=== PATIENT | female | born 2000 | race Caucasian/White ===

== ENCOUNTER 2023-03-08 23:19 | Inpatient (IN) | payer BC, OTHER ==
[~2023-03-08] VITALS: Ht 162.6 cm; Wt 39.5 kg
[2023-03-09] VITALS (7 sets, daily range): BP systolic 105–158; BP diastolic 64–87; TEMP 98.1–98.7; O2SAT 98–100
--- NOTE | 2023-03-09 01:10 | NUR ---
BIBFRIEND C/O N/V DURING THE DAY, NON STOP. PAIN AT RLQ. AAXO4.
[2023-03-09] MEDS ORDERED: ONDANSETRON HCL/PF 4 MG/2 ML VIAL ONE (01:29)
[2023-03-09 01:30] LABS: BASOPHILS % (AUTO) 0.3 % (0.0-2.0); EOSINOPHILS % (AUTO) 0.3 % (0.0-6.0); HEMATOCRIT 42 % (33-45); LYMPHOCYTES # (AUTO) 0.5 K/uL (0.8-4.8); LYMPHOCYTES % (AUTO) 2.7 % (20.0-44.0); MEAN CORPUSCULAR HGB CONC 33 g/dl (31.0-36.0); MEAN CORPUSCULAR VOLUME 90 fL (82-100); MONOCYTES # (AUTO) 0.3 K/uL (0.1-1.30); MONOCYTES % (AUTO) 1.5 % (2.0-12.0); NEUTROPHILS # (AUTO) 16.2 K/uL (1.8-8.9); NEUTROPHILS % (AUTO) 95.2 % (43.0-81.0); PLATELET COUNT (AUTO) 268 K/uL (150-450); RED BLOOD CELL COUNT(AUTO) 4.73 MIL/uL (4.0-5.2); WHITE BLOOD COUNT (AUTO) 17.1 K/uL (4.3-11.0)
[2023-03-09] MEDS ORDERED: ONDANSETRON HCL/PF 4 MG/2 ML VIAL IVP ONE (01:30)
[2023-03-09] MEDS ORDERED: IV NS 0.9% 1,000 ML BAG IV ONE ×2 (01:30→02:30)
[2023-03-09] MEDS ORDERED: MORPHINE SULFATE INJ 2 MG/ML DISP.SYRIN IV ONE ×2 (01:30→02:30)
[2023-03-09 01:40] LABS: POTASSIUM 3.8 mmol/L (3.5-5.1)
[2023-03-09 01:46] LABS: ALBUMIN 4.5 g/dL (3.4-5.0); BILIRUBIN,DIRECT 0.2 mg/dL (0.0-0.2); BILIRUBIN,TOTAL 0.7 mg/dL (0.2-1.0); TOTAL PROTEIN, SERUM 8.2 g/dL (6.4-8.2)
[2023-03-09] MEDS ORDERED: PIPERACILLIN /TAZOBACTAM 3.375 G in IV D5W 50 ML IV ONE (02:30)
[2023-03-09] MEDS ORDERED: VANCOMYCIN 1 GM in IV D5W 250 ML IV ONE (02:30)
[2023-03-09] MEDS ORDERED: PIPERACI/TAZO 3.375GM/D5W 50ML PB IV ONE (02:33)
[2023-03-09] MEDS ORDERED: VANCOMYCIN 1 GM /D5W 250 ML PB IV ONE (02:33)
--- NOTE | 2023-03-09 02:50 | NUR ---
URINE SAMPLE COLLECTED AND SENT TO LAB.
--- NOTE | 2023-03-09 02:50 | NUR ---
IV FLUIDS NS 0.9 1 LITER; START TIME: 0250; END TIME: 0350; AT L AC.
[2023-03-09] MEDS ORDERED: HYDROMORPHONE 1 MG/1 ML DISP.SYRIN IV ONE (03:00)
[2023-03-09] MEDS ORDERED: HYDROMORPHONE 1 MG/1 ML DISP.SYRIN ONE (03:02)
[2023-03-09] MEDS ORDERED: CT SWABBABLE VALVE TRANS SET 1 EA INFUS.SET MC ONE (03:06)
[2023-03-09] MEDS ORDERED: IV NS 0.9% 250 ML IV ONE (03:06)
[2023-03-09] MEDS ORDERED: IOHEXOL-300 100 ML VIAL IV ONE (03:06)
--- NOTE | 2023-03-09 03:53 | NUR ---
PATIENT TAKEN TO CT BY [facility].
[2023-03-09 03:56] LABS: BILIRUBIN,URINE 1+ (NEGATIVE); COLOR,URINE YELLOW (YELLOW); LEUKOCYTE ESTERASE ,URINE 1+ (NEGATIVE); NITRITE, URINE NEGATIVE (NEGATIVE); PROTEIN,URINE TRACE mg/dl (NEGATIVE); UGLUCOSE NEGATIVE (NEGATIVE); UROBILINOGEN,URINE 0.2 EU/dL (0.2)
[2023-03-09 04:13] LABS: BACTERIA,URINE Few /HPF (None Seen); MUCUS,URINE Few /LPF (None Seen); RBC,URINE NONE SEEN /HPF (0-2)
--- NOTE | 2023-03-09 04:55 | NUR ---
COMMERCIAL ASSISTANT AT BEDSIDE.
[2023-03-09] MEDS ORDERED: IV NS 0.9% 1,000 ML IV SCH (05:00)
--- NOTE | 2023-03-09 05:00 | NUR ---
REPORT GIVEN TO DORA GUZMAN.
--- NOTE | 2023-03-09 05:30 | NUR ---
PATIENT TRANSFERED TO ROOM 308-1.
[2023-03-09] MEDS: ENOXAPARIN SODIUM 40 MG/0.4 ML DISP.SYRIN SQ SCH (06:03)
--- NOTE | 2023-03-09 06:10 | NUR ---
DICER MACHINE OPERATORBILINGUAL RESEARCH INTERVIEWER NOTE PATIENT WAS BROUGHT TO THE UNIT AT AROUND 0530 VIA STRETCHER ACCOMPANIED BY ER STAFF. ALERT AND ORIENTED X4. PER REPORT, PATIENT WAS SENT TO ER D/T NON STOP N/V DURING THE DAY. DIRECTED TO ROOM 308-1. EXPLAINED ADMISSION PROCESS TO THE PATIENT WHICH INCLUDES SKIN ASSESSMENT, PATIENT VERBALIZED UNDERSTANDING AND AGREED TO IT. SKIN IS INTACT. WITH IV ACCESS ON LFA 20G. BELONGINGS CHECK AND PROPERLY DOCUMENTED TOGETHER WITH ASSIGNED STAFF. STARTED ON IV HYDRATION OF NS AT 75ML/HR. VITALS TAKEN AND RECORDED. SAFETY MEASURES IN PLACE. KEPT BED IN LOCKED AND IN LOW POSITION. SIDE RAILS UP X2. ADVISED TO USE THE CALL LIGHT WHEN IN NEED OF ASSISTANCE. ALL NURSING NEEDS ATTENDED. ENDORSED TO INCOMING SHIFT FOR CONTINUITY OF CARE.
[2023-03-09] MEDS ORDERED: DEXT10TA7 PO (08:23)
[2023-03-09] MEDS ORDERED: LAMO150T6 PO (08:23)
[2023-03-09] MEDS: ACETAMINOPHEN 325 MG TABLET PO PRN ×2 (09:02→13:14)
[2023-03-09] MEDS: ONDANSETRON HCL/PF 4 MG/2 ML VIAL IVP PRN ×3 (09:25→21:32)
[2023-03-09] MEDS: MORPHINE SULFATE INJ 2 MG/ML DISP.SYRIN IV PRN ×3 (10:16→21:32)
--- NOTE | 2023-03-09 10:20 | NUR ---
RN NOTE PATIENT WAS WITH KINGSLEY CHAPPELL, PATIENT COMPLAINED OF ABDOMEN PAIN 9. PATIENT ASKED FOR PAIN MEDICATION, MORPHINE 2MG IV GIVEN AT 1016, CONFER MEASURES OFFERED TO PATIENT, WILL CONTINUE TO MONITOR.
[2023-03-09] MEDS: ZOSYN IVPB 3.375 G in IV D5W 50ml IV SCH ×3 (12:22→23:36)
[2023-03-09] MEDS: DICYCLOMINE HCL 10 MG CAPSULE PO SCH ×2 (18:17→21:00)
--- NOTE | 2023-03-09 18:38 | NUR ---
CLOSING NOTE PATIENT IN BED RESTING, A/OX4, ON ROOM AIR WITH CONTINUOS ABDOMINAL PAIN, PAIN CONTROL PER MD ORDER/ PT STATUS. PATIENT THROUGHOUT SHIT NAUSEOUS AND VOMITING. ASPIRATION PRECAUTION IN PLACE AND MEDICATION GIVEN ORDERED. PATIENT THROUGHOUT SHIT WAS COMPLAINT AND COOPERATIVE TO CARE. MD AND CHARGE NURSE UPDATED ON PATIENT STATUS. IV ACCESS REMAINS INTACT AND PATIENT, RUNNING NS 75ML/HR. SAFETY PRECAUTION AND ASPIRATION PRECAUTION IN PLACE, BED IN A FOWLERS POSITION, LOCKED IN PLACE, SRx2, CALL LIGHT WITH IN REACH.
--- NOTE | 2023-03-09 19:40 | NUR ---
COSMETIC SURGEON OPENING NOTES RECEIVED PT IN BED, AWAKE, A/O X4, ABLE TO MAKE NEEDS KNOWN. PT ON ROOM AIR, TOLERATING WELL, DENIES SOB. ON POLYMER MATERIALS CONSULTANT WITH CURRENT READING OF SR, 76BPM. IV ACCESS ON LAC 20G, PATENT, INTACT AND INFUSING WELL WITH NS 75ML/HR. PT IS AMBULATORY, WITH BRP. DENIES PAIN, NAUSEA AND ABDOMINAL SPASM AT THIS TIME. NOTED NO S/S OF ACUTE DISTRESS. PT'S FRIEND PRESENT AT BEDSIDE. SAFETY PRECAUTIONS IN PLACED: BED AT LOWEST AND LOCKED POSITION, CALL LIGHT BUTTON WITHIN REACH. WILL CONTINUE MONITORING PT.
--- NOTE | 2023-03-09 21:17 | NUR ---
AIR PUMPER NOTES SPOKE TO PHARMACY: ADVISED TO HOLD BENTYL THEN GIVE NEXT DOSE AT 0500 SCHEDULED.
--- NOTE | 2023-03-09 21:32 | NUR ---
SOCIAL PROBLEMS SPECIALIST NOTES PT VOMITING AND COMPLAINS OF PAIN. PRN ZOFRAN AND MORPHINE GIVEN. PLEASE SEE EMAR FOR ASSESSMENT AND ADMIN. WILL CONTINUE TO MONITOR PT.
--- NOTE | 2023-03-09 21:33 | NUR ---
MECHANIC INSULATOR NOTE PATIENT WITH EPISODE OF EMESIS X 1, CONTINUES TO FEEL NAUSEOUS. PATIENT ALSO C/O 10/10 ABDOMINAL PAIN. ZOFRAN 4 MG IV AND MORPHINE 2 MG IV GIVEN ORDERED. WILL CONTINUE TO MONITOR PATIENT
[2023-03-09] MEDS ORDERED: ZOLPIDEM TARTRATE 5 MG TABLET PO PRN (22:00)
--- NOTE | 2023-03-09 23:47 | NUR ---
SHELLS INSPECTOR NOTES PT UNABLE TO SLEEP, REQUESTED FOR AMBIEN. PRN AMBIEN 5MG TAB GIVEN, PLEASE SEE EMAR.
[2023-03-10] VITALS (8 sets, daily range): BP systolic 86–103; BP diastolic 45–73; TEMP 98–99.2; O2SAT 96–99
[2023-03-10] MEDS: IV NS 0.9% 1,000 ML IV PRN ×2 (03:04→21:38)
--- NOTE | 2023-03-10 04:21 | NUR ---
FEED IN WORKER NOTE PATIENT REQUESTED MEDICATION FOR SLEEP, CONTACTED INSEMINATION WORKER DR. FRIAS WITH ORDER FOR PRN AMBIEN 5 MG PO HS. ORDER CARRIED OUT
[2023-03-10] MEDS: DICYCLOMINE HCL 10 MG CAPSULE PO SCH ×3 (05:37→20:30)
[2023-03-10] MEDS: ZOSYN IVPB 3.375 G in IV D5W 50ml IV SCH ×4 (05:38→23:43)
[2023-03-10] MEDS: ENOXAPARIN SODIUM 40 MG/0.4 ML DISP.SYRIN SQ SCH (05:39)
[2023-03-10 05:49] LABS: BASOPHILS # (AUTO) 0.1 K/uL (0.0-0.2); BASOPHILS % (AUTO) 0.7 % (0.0-2.0); EOSINOPHILS % (AUTO) 0.6 % (0.0-6.0); HEMATOCRIT 31 % (33-45); HEMOGLOBIN 10.6 g/dL (11.5-14.8); LYMPHOCYTES # (AUTO) 2.5 K/uL (0.8-4.8); LYMPHOCYTES % (AUTO) 34.4 % (20.0-44.0); MEAN CORPUSCULAR HGB CONC 34 g/dl (31.0-36.0); MEAN CORPUSCULAR VOLUME 88 fL (82-100); MONOCYTES # (AUTO) 0.6 K/uL (0.1-1.30); MONOCYTES % (AUTO) 7.7 % (2.0-12.0); NEUTROPHILS # (AUTO) 4.1 K/uL (1.8-8.9); NEUTROPHILS % (AUTO) 56.6 % (43.0-81.0); PLATELET COUNT (AUTO) 199 K/uL (150-450); RED BLOOD CELL COUNT(AUTO) 3.54 MIL/uL (4.0-5.2); WHITE BLOOD COUNT (AUTO) 7.2 K/uL (4.3-11.0)
[2023-03-10 06:08] LABS: ALBUMIN 2.9 g/dL (3.4-5.0); BILIRUBIN,TOTAL 0.6 mg/dL (0.2-1.0); CALCIUM, SERUM 8.3 mg/dL (8.5-10.1); CREATININE 0.7 mg/dL (0.6-1.3); MAGNESIUM 1.9 mg/dL (1.8-2.4); PHOSPHORUS 3.3 mg/dL (2.5-4.9); POTASSIUM 3.2 mmol/L (3.5-5.1); TOTAL PROTEIN, SERUM 5.3 g/dL (6.4-8.2)
--- NOTE | 2023-03-10 06:30 | NUR ---
SOCIAL SCIENCES CHAIR CLOSING NOTES PT IN BED, ASLEEP, A/O X4, EASILY AROUSABLE BY NAME. PT ON ROOM AIR, TOLERATING WELL, NO S/S OF OR ACUTE DISTRESS AT THIS TIME. ON CHIEF ULTRASOUND TECHNOLOGIST WITH CURRENT READING OF SR, 82BPM. IV ACCESS ON LAC 20G, PATENT, INTACT AND INFUSING WELL WITH NS 75ML/HR. PT IS AMBULATORY, WITH BRP. NOTED 1 EPISODE OF EMESIS DURING THE SHIFT AND FLARING ABDOMINAL PAIN - RELIEVED BY PRN MEDS. ALL DUE MEDS GIVEN, ALL NEEDS ATTENDED. SAFETY PRECAUTIONS IN PLACED: BED AT LOWEST AND LOCKED POSITION, SIDE RAILS UP X2, CALL LIGHT BUTTON WITHIN REACH. ENDORSED PT TO NEXT SHIFT NURSE FOR AVERY.
--- NOTE | 2023-03-10 07:23 | NUR ---
ASSISTANT AUDITOR OPENING NOTES RECEIVED PT IN BED, ASLEEP, A/O X4, EASILY AROUSABLE. PT ON ROOM AIR, TOLERATING WELL, NO S/SX OF OR ACUTE DISTRESS AT THIS TIME. ON TRANSPORTATION PLANNER WITH CURRENT READING OF SR, 76 BPM. IV ACCESS ON LAC 20G, PATENT, INTACT AND INFUSING WELL WITH NS 75ML/HR. PT IS AMBULATORY, WITH BRP. ON CLEAR LIQUID DIET. DENIES PAIN AT THIS TIME. WILL ADMINISTER ALL DUE MEDS ORDERED. ALL NEEDS ATTENDED. SAFETY PRECAUTIONS IN PLACED: BED AT LOWEST AND LOCKED POSITION, SIDE RAILS UP X2, CALL LIGHT BUTTON WITHIN REACH. WILL CONTINUE TO MONITOR.
[2023-03-10] MEDS ORDERED: POTASSIUM CL. PREMIX PERIPHER. 50 ML IV SCH (10:30)
[2023-03-10] MEDS ORDERED: POTASSIUM CHLORIDE 20 MEQ TAB.PRT.SR PO ONE (11:00)
[2023-03-10] MEDS ORDERED: IV NS 0.9% 250 ML IV ONE (11:01)
[2023-03-10] MEDS ORDERED: IOHEXOL-350 100 ML VIAL IV ONE (11:01)
[2023-03-10] MEDS: ENSURE ENLIVE 237 ML LIQUID (VANILLA) PO SCH (17:31)
--- NOTE | 2023-03-10 19:15 | NUR ---
SAIL FINISHER MACHINE closing NOTES PT IN BED, RESTING COMFORTABLY. A/O X4, EASILY AROUSABLE. PT ON ROOM AIR, TOLERATING WELL, NO S/SX OF OR ACUTE DISTRESS AT THIS TIME. IV ACCESS ON LAC 20G, PATENT, INTACT AND INFUSING WELL WITH NS 75ML/HR. PT IS AMBULATORY, WITH BRP. ON SOFT DIET. DENIES PAIN AT THIS TIME. ALL DUE MEDS GIVEN ORDERED. ALL NEEDS ATTENDED. SAFETY PRECAUTIONS IN PLACED: BED AT LOWEST AND LOCKED POSITION, SIDE RAILS UP X2, CALL LIGHT BUTTON WITHIN REACH. WILL ENDORSE TO NEXT SHIFT.
[2023-03-11] MEDS ORDERED: TRAZ-257 PO (00:24)
[2023-03-11] MEDS ORDERED: FERR325T23 PO (00:24)
[2023-03-11] MEDS ORDERED: QUET200T PO (00:24)
[2023-03-11] MEDS ORDERED: SODI100037 PO (00:24)
[2023-03-11] MEDS ORDERED: ASPI-1169 PO (00:24)
[2023-03-11] MEDS ORDERED: MAGN400T8 PO (00:24)
[2023-03-11] MEDS ORDERED: GABA-532 PO (00:24)
[2023-03-11] MEDS ORDERED: LORA-259 PO (00:24)
[2023-03-11] MEDS ORDERED: POLY119P17 PO (00:24)
[2023-03-11] MEDS ORDERED: ATOR40TA GT (00:24)
[2023-03-11] MEDS ORDERED: DIVA-78 PO ×2 (00:24)
[2023-03-11] MEDS: ENOXAPARIN SODIUM 40 MG/0.4 ML DISP.SYRIN SQ SCH (04:38)
[2023-03-11] MEDS: DICYCLOMINE HCL 10 MG CAPSULE PO SCH ×4 (04:40→22:42)
--- NOTE | 2023-03-11 05:05 | NUR ---
CLOSING RN NOTES: ALERT AND ORIENTATED X4 SHE STATED "I'M FINALLY FEELING BETTER" AND SHE WAS GRINNING AMBULATES TO THE BATHROOM WAS PLACED ON A SOFT DIET AND SHE HAS A GOOD APPETITE SNACK CONSUMED 100% NO C/O OF ABD PAIN BS + VIA AUSCULTATION Addendum: 03/11/23 at 0633 by ANTHONY LEE RN MS. SAPP WOKE UP AT 6AM AND STARTED HAVING HARD DRY HEAVES MEDICATED WITH MORPHINE 2 MG FOR ABD PAIN SHE STATED THE PAIN IS STILL THERE N THE ABD / ZOFRAN FOR THE NAUSEA GIVEN AND EFFECTIVE SHE WAS REQUEISTING MEDICINE FOR SLEEP INFORMED HER SHE NEEDS TO BE AWAKE AND DEEP BREATH AND THE DOCTOR SHOULD BE COMING IN THIS AM
[2023-03-11] MEDS: ZOSYN IVPB 3.375 G in IV D5W 50ml IV SCH ×4 (05:48→23:40)
[2023-03-11] MEDS: ONDANSETRON HCL/PF 4 MG/2 ML VIAL IVP PRN (06:06)
[2023-03-11] MEDS: MORPHINE SULFATE INJ 2 MG/ML DISP.SYRIN IV PRN (06:07)
--- NOTE | 2023-03-11 06:39 | NUR ---
MS. SAPP GIVEN ZOFRAN FOR NAUSEA THIS AM SHE STATES SHE STILL HAS NAUSEA AND NO LONGER WORKS FOR HER SHE WAS ALSO GIVEN MORPHINE 2 MG IV AND SHE STATED THIS MEDICATION NO LONGER WORKS FOR HER SHE WAS REQUIESTING A PILL TO GO TO SLEEP EXPLAINED TO HER GIVE THE MEDICATION SOME TIME AND THE MD WILL BE IN THIS AM
[2023-03-11 06:41] LABS: BASOPHILS # (AUTO) 0.1 K/uL (0.0-0.2); BASOPHILS % (AUTO) 1.2 % (0.0-2.0); EOSINOPHILS % (AUTO) 1.5 % (0.0-6.0); HEMATOCRIT 33 % (33-45); HEMOGLOBIN 11.1 g/dL (11.5-14.8); LYMPHOCYTES % (AUTO) 49.3 % (20.0-44.0); MEAN CORPUSCULAR HGB CONC 34 g/dl (31.0-36.0); MEAN CORPUSCULAR VOLUME 89 fL (82-100); MONOCYTES # (AUTO) 0.5 K/uL (0.1-1.30); MONOCYTES % (AUTO) 8.5 % (2.0-12.0); NEUTROPHILS # (AUTO) 2.4 K/uL (1.8-8.9); NEUTROPHILS % (AUTO) 39.5 % (43.0-81.0); PLATELET COUNT (AUTO) 199 K/uL (150-450); RED BLOOD CELL COUNT(AUTO) 3.68 MIL/uL (4.0-5.2); WHITE BLOOD COUNT (AUTO) 6.1 K/uL (4.3-11.0)
[2023-03-11 07:11] LABS: ALBUMIN 2.9 g/dL (3.4-5.0); BILIRUBIN,TOTAL 0.5 mg/dL (0.2-1.0); CALCIUM, SERUM 8.5 mg/dL (8.5-10.1); CREATININE 0.7 mg/dL (0.6-1.3); PHOSPHORUS 3.3 mg/dL (2.5-4.9); POTASSIUM 3.5 mmol/L (3.5-5.1); TOTAL PROTEIN, SERUM 5.6 g/dL (6.4-8.2)
--- NOTE | 2023-03-11 07:30 | NUR ---
RN MS OPENING NOTES RECEIVED PT IN BED, ASLEEP, A/O X4, EASILY AROUSABLE. PT ON ROOM AIR, TOLERATING WELL, WITH INTRACTABLE NAUSEA BUT LITTLE EMESIS. IV ACCESS ON LAC 20G, PATENT, INTACT AND INFUSING WELL WITH NS 75ML/HR. PT IS AMBULATORY, WITH BRP. ON SOFT DIET. WITH SEVERE ABDOMINAL PAIN 10/10. WILL ADMINISTER ALL DUE MEDS ORDERED. ALL NEEDS ATTENDED. SAFETY PRECAUTIONS IN PLACED: BED AT LOWEST AND LOCKED POSITION, SIDE RAILS UP X2, CALL LIGHT BUTTON WITHIN REACH.
--- NOTE | 2023-03-11 08:00 | NUR ---
RN NOTES PT STILL HAVING INTRACTABLE NAUSEA AND SEVERE ABDOMINAL PAIN. PRN MORPHINE AND ZOFRAN GIVEN AT [address] BARNETT NOTIFIED, STILL WAITING FOR ORDERS. WILL CONTINUE TO OBSERVE AND MONITOR PT.
[2023-03-11] MEDS: ENSURE ENLIVE 237 ML LIQUID (VANILLA) PO SCH ×4 (08:22→17:07)
[2023-03-11 08:30] VITALS: BP 139/90; TEMP 98.5; O2SAT 100
[2023-03-11] MEDS: METOCLOPRAMIDE HCL 10 MG/2 ML VIAL IV PRN ×2 (09:15→22:36)
[2023-03-11] MEDS: HYDROMORPHONE 1 MG/1 ML DISP.SYRIN IV PRN ×2 (10:08→15:42)
--- NOTE | 2023-03-11 10:08 | NUR ---
RN NOTES 1 MG DILAUDID TAKEN OUT FROM OMMNICELL. ADMINISTERED 0.4 MG DILAUDID TO PT AND WASTED 0.6 MG WITNESSED BY JALEN JOHN.
--- NOTE | 2023-03-11 10:10 | NUR ---
RN NOTE I WITNESS RN ANNE WASTED 0.6MG DILAUDID OUT OF 1 MG.
[2023-03-11] MEDS ORDERED: LORAZEPAM 1 MG TABLET PO PRN (12:00)
[2023-03-11] MEDS: QUETIAPINE FUMARATE 100 MG TABLET PO SCH ×3 (12:11→17:07)
[2023-03-11] MEDS: GABAPENTIN 300 MG CAPSULE PO SCH ×3 (12:12→17:07)
[2023-03-11] MEDS: IV NS 0.9% 1,000 ML IV PRN (15:42)
--- NOTE | 2023-03-11 15:42 | NUR ---
RN NOTES 1 MG DILAUDID TAKEN OUT FROM OMMNICELL. ADMINISTERED 0.4 MG DILAUDID TO PT AND WASTED 0.6 MG WITNESSED BY MARIA E JOHN.
[2023-03-11 16:00] VITALS: BP 102/56; TEMP 98.5; O2SAT 99
--- NOTE | 2023-03-11 16:00 | NUR ---
RN NOTES I WITNESSED WASTED DILAUDID 0.6 MG FROM ANNE JOHN .
[2023-03-11] MEDS: DIVALPROEX SODIUM 500 MG TABLET.DR PO SCH (17:07)
--- NOTE | 2023-03-11 18:43 | NUR ---
RN MS OPENING NOTES PT IN BED, ASLEEP, A/O X4, EASILY AROUSABLE. PT ON ROOM AIR, TOLERATING WELL, NO NAUSEA/VOMITING AT THIS TIME. IV ACCESS ON LAC 20G, PATENT, INTACT AND INFUSING WELL WITH NS 75ML/HR. PT IS AMBULATORY, WITH BRP. ON SOFT DIET. DENIES PAIN AT THIS TIME. ALL MEDS ADMINISTERED ORDERED. ALL NEEDS ATTENDED. SAFETY PRECAUTIONS IN PLACED: BED AT LOWEST AND LOCKED POSITION, SIDE RAILS UP X2, CALL LIGHT BUTTON WITHIN REACH. WILL ENDORSE TO NEXT SHIFT.
--- NOTE | 2023-03-11 19:10 | NUR ---
MS RN OPENING NOTES: PATIENT IN BED, A/O X4. INDEPENDENT WITH ADLS AND MOBILITY. TOLERATING ROOM AIR. IV PERIPHERAL LINE LFA INTACT, IV FLUIDS INFUSING. DENIES NAUSEA AND VOMITING AT THIS TIME, NO COMPLAINTS OF ABDOMINAL PAIN. INSTRUCTED ON HOW TO USE CALL LIGHT DEVICE. FAMILY AT BEDSIDE.
[2023-03-11 20:00] VITALS: BP 88/42; TEMP 98.2; O2SAT 96
--- NOTE | 2023-03-11 22:25 | NUR ---
MS RN NOTE: LOW BP 89/37, REPEAT 83/40. PATIENT ON IV FLUIDS. DENIES BLURRY VISION. NOTIFIED ASSOCIATE PROFESSOR OF CHEMISTRY MAGDIEL WITH NO NEW ORDERS AT THIS TIME. WILL CONTINUE TO MONITOR.
--- NOTE | 2023-03-11 22:44 | NUR ---
MS RN NOTES: PATIENT REPORTS NAUSEA, NO EMESIS. NO COMPLAINTS OF ABDOMINAL PAIN. GIVEN REGLAN IV. WILL MONITOR.
[2023-03-12 00:58] VITALS: BP 90/41; TEMP 98.2; O2SAT 96
--- NOTE | 2023-03-12 00:59 | NUR ---
MS RN NOTES: PATIENT AMBULATED TO THE BATHROOM. DENIES DIZZINESS, BACK TO BED. BP CHECKED 90/41. ASYMPTOMATIC.
[2023-03-12] MEDS: ENOXAPARIN SODIUM 40 MG/0.4 ML DISP.SYRIN SQ SCH (05:15)
[2023-03-12] MEDS: ZOSYN IVPB 3.375 G in IV D5W 50ml IV SCH ×2 (05:19→12:00)
[2023-03-12] MEDS: DICYCLOMINE HCL 10 MG CAPSULE PO SCH (05:45)
--- NOTE | 2023-03-12 07:29 | NUR ---
MS RN CLOSING NOTES: PATIENT IN BED, A/O X4. INDEPENDENT WITH ADLS AND MOBILITY. TOLERATING ROOM AIR. IV PERIPHERAL LINE LFA INTACT, IV FLUIDS INFUSING. N/V IMPROVED WITH REGLAN. NO C/O ABDOMINAL PAIN. NO RESPIRATORY DISTRESS DURING THE NIGHT. CONT ANTIBIOTIC/ IV FLUIDS. ENDORSED TO SHANNON JOHN.
--- NOTE | 2023-03-12 07:38 | NUR ---
RN MS OPENING NOTES RECEIVED PATIENT AWAKE IN BED. A/OX4. PT ON ROOM AIR, TOLERATING WELL. IV ACCESS ON LFA 20G, PATENT, INTACT AND INFUSING WELL WITH NS 75ML/HR. PT IS AMBULATORY, WITH BRP. ON SOFT DIET. NO COMPLAINT OF PAIN AT THIS MOMENT. NO N/V. SAFETY PRECAUTIONS IN PLACED: BED AT LOWEST AND LOCKED POSITION, SIDE RAILS UP X2, CALL LIGHT BUTTON WITHIN REACH. WILL CONTINUE TO MONITOR PATIENT.
[2023-03-12] MEDS: DIVALPROEX SODIUM 500 MG TABLET.DR PO SCH (08:32)
[2023-03-12] MEDS: QUETIAPINE FUMARATE 100 MG TABLET PO SCH (08:32)
[2023-03-12] MEDS: GABAPENTIN 300 MG CAPSULE PO SCH (08:32)
[2023-03-12] MEDS: ENSURE ENLIVE 237 ML LIQUID (VANILLA) PO SCH (08:33)
[2023-03-12 08:52] VITALS: BP 100/61; TEMP 99; O2SAT 100
[2023-03-12] MEDS ORDERED: LamoTRIgine 100 MG TABLET PO SCH (09:00)
[2023-03-12] MEDS ORDERED: DIVALPROEX SODIUM 250 MG TABLET.DR PO SCH (09:00)
--- NOTE | 2023-03-12 12:39 | NUR ---
RN DISCHARGED NOTES PT DISCHARGED HOME IN STABLE CONDITION. A/O X4. ABLE TO MAKE NEEDS KNOWN. ON ROOM AIR, TOLERATING WELL, NO SOB NOTED. NO SKIN ISSUES NOTED. ALL BELONGINGS ACCOUNTED FOR AND PT SIGNED BELONGINGS LIST. IV ACCESS ON LFA G#22 REMOVED WITH NO ACTIVE BLEEDING NOTED, DRY DRESSING APPLIED AT SITE. HEALTH TEACHINGS/DISCHARGE INSTRUCTIONS GIVEN TO PT, VERBALIZED UNDERSTANDING. NAME ARMBAND REMOVED. PT LEFT UNIT @ [id number] ACCOMPANIED BY [place] NURSE SHANNON POLANCO, PATIENT'S MOTHER SERENA WILL TAKE PATIENT HOME. CHARGE NURSE AWARE OF D/C.
== END 2023-03-12 12:45 | disposition home or self-care (01) | DRG 246 ==
LOC: ER 23:24 → TELE 03-09 04:08 → MED 03-10 13:47
PROVIDERS: ADMIT Internal Medicine; ATTEND Nurse Practitioner Acute Care
DX: K55.1 Chronic vascular disorders of intestine (principal); E87.20 Acidosis, unspecified; D72.829 Elevated white blood cell count, unspecified
CPT/HCPCS: 36415; 74018; 76705-TC; 80048-TC; 80053-TC; 80076-TC; 81001; 83605-TC; 83690-TC; 83735-TC; 84100-TC; 84702-TC; 84703-TC; 85025-TC; 87040-TC; 87081-TC; 87086-TC; A4223; G0378; J1170; J1650; J2270; J2405; J2543; J2765; J3370; J3480; J3490; J7030; J7050; J7060; Q9967